=== PATIENT | male | born 1995 | race Caucasian/White ===

== ENCOUNTER 2018-12-17 11:42 | Emergency (ER) | payer SELFPAY ==
[~2018-12-17] VITALS: Ht 175.3 cm; Wt 70.8 kg
[2018-12-17 11:53] VITALS: Ht 175.3 cm; Wt 70.8 kg
[2018-12-17 14:47] VITALS: BP 123/86
== END 2018-12-17 14:47 | disposition home or self-care (01) ==
LOC: ED 11:42
DX: L02.11 Cutaneous abscess of neck (principal)
CPT/HCPCS: J0696; J2001; J2270; Q0092